=== PATIENT | female | born 1995 | race Caucasian/White ===

== ENCOUNTER → 2018-06-12 | Outpatient (CLI) | payer OTHER | LOC: M RAD 10:16 | DX: Z36.89 Encounter for other specified antenatal screening (principal); Z3A.18 18 weeks gestation of pregnancy | CPT/HCPCS: 76811 ==

== ENCOUNTER → 2018-07-30 | Outpatient (CLI) | payer OTHER ==
--- NOTE | 2018-07-30 12:59 | REP ---
Urinary tract sonogram: History: Flank pain, frequent UTIs. Approximate 25 weeks gestation. Comparison: No comparison study. Findings: Scanning at the level of the urinary bladder shows no abnormality. The patient voided just prior to the exam and the urinary bladder was empty. Renal cortical echogenicity pattern is normal bilaterally and contours are smooth. There is no evidence of hydronephrosis, cyst, mass, or calculus in either kidney. heart rate is recorded at 160 beats per minute. The right kidney measures 12.4 x 6.9 x 4.8 cm. Left renal dimensions are 12.9 x 5.9 x 5.4 cm. Impression: Normal urinary tract sonography. Electronically Signed by Charlie Anna MD 07/30/2018 12:51 P
== END ==
LOC: M RAD 12:17
PROVIDERS: ATTEND Obstetrics & Gynecology
DX: R10.9 Unspecified abdominal pain (principal)

== ENCOUNTER 2018-09-22 23:12 | Outpatient (CLI) | payer OTHER ==
[~2018-09-22] VITALS: Ht 182.9 cm; Wt 122.2 kg
[2018-09-22 23:26] VITALS: BP 130/73
[2018-09-22] MEDS ORDERED: PRENTAB9 PO (23:45)
[2018-09-22] MEDS ORDERED: FERR325T3 PO (23:45)
--- NOTE | 2018-09-23 00:17 | IPNPDOC ---
Text Note Date of Service The patient was seen on 09/23/18. NOTE 22 yo at 32+6 weeks presents to L&D for decreased movement after her dog jumped on her abdomen earlier this evening. She reports she was feeling a lot of movement tonight and then her large dog ran into her abdomen. After that she hasn't felt her baby move as much. She has mild pain where her dog hit her but nothing severe. She denies any vaginal bleeding or leakage of fluid. She also denies any contractions. Her is uncomplicated. Vitals - VSS, afebrile, normotensive, non tachycardic General - AAOX3, sitting up in bed, NAD Abdomen - Gravid uterus, no fundal tenderness Extremities - No edema Bedside TAUS - SIUP in cephalic presentation. +gross movement. ALMA 12.1cm. FHR tracing - Reactive NST. Moderate variability, +accels, no decels. No ctx on toco. Reassuring status on NST and bedside US. Patient felt significant movement while in triage and was reassured. Benign exam. Discharged home with return precautions. All patient questions answered. DO LORENZO Weinstein,Luly, I+O VS, Cheikhe, I+O Vital Signs Date Time Temp Pulse Resp B/P (MAP) Pulse Ox O2 Delivery O2 Flow Rate FiO2 09/22/18 23:26 98.6 84 18 130/73 (92) JULIA WEINSTEIN DO Sep 23, 2018 00:17
== END 2018-09-23 00:10 | disposition home or self-care (01) ==
LOC: M LDO 23:12
PROVIDERS: ATTEND Obstetrics & Gynecology
DX: O36.8130 Decreased fetal movements, third trimester, not applicable or unspecified (principal); W54.1XXA Struck by dog, initial encounter; Y92.89 Other specified places as the place of occurrence of the external cause; Y93.89 Activity, other specified; Y99.8 Other external cause status; Z3A.32 32 weeks gestation of pregnancy
CPT/HCPCS: 59025; 76815; G0378; G0463

== ENCOUNTER 2018-10-30 15:51 | Outpatient (CLI) | payer OTHER ==
[~2018-10-30] VITALS: Ht 182.9 cm; Wt 125.6 kg
[~2018-10-30 15:51] MED LIST: FERR325T3 PO; PRENTAB9 PO
[2018-10-30 16:36] VITALS: BP 107/54
[2018-10-31] MEDS ORDERED: BUSP10TA PO (10:27)
[2018-10-31] MEDS ORDERED: PROAAER10 INH (10:53)
== END 2018-10-30 17:57 | disposition home or self-care (01) ==
LOC: M LDO 15:51
PROVIDERS: ATTEND Obstetrics & Gynecology
DX: O36.8130 Decreased fetal movements, third trimester, not applicable or unspecified (principal); Z3A.38 38 weeks gestation of pregnancy
CPT/HCPCS: 59025; G0378; G0463

== ENCOUNTER 2018-10-31 10:03 | Inpatient (IN) | payer OTHER ==
[2018-10-31] VITALS (15 sets, daily range): BP systolic 117–150; BP diastolic 58–83
[~2018-10-31] VITALS: Ht 182.9 cm; Wt 126.3 kg
[2018-10-31] MEDS ORDERED: BUSP10TA PO (10:27)
[2018-10-31] MEDS ORDERED: PROAAER10 INH (10:53)
[2018-10-31] MEDS: LACTATED RINGER'S 1000 ML IV STA ×2 (10:55→11:47)
[2018-10-31] MEDS ORDERED: miSOPROStol 50 MCG 1/2 TAB (S0191) PO PRN (11:00)
--- NOTE | 2018-10-31 11:14 | HPEPDOC ---
Obstetrical History & Physical General Date of Admission October 31, 2018 at 10:54 History of Present Illness 22 y/o at 38+2 seen yesterday for decr FM and also found to have an ALMA 6 cm. Set up for NST/ALMA this coming MON, but today states that the FM has not improved, never got 4/hour at all overnight and only had 1 noted mvmt this AM. No LOF/VB/reg ctx's. 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 Past Medical History Medical History denies Surgical History: Other (left eye 2002) Family History Significant Family History: No pertinent family hx Social History Marital Status: Family situation: Spouse/partner home Psychosocial History: No pertinent psych hx * Smoker: non-smoker Alcohol: Denies Drugs: denies Abuse Violence Screening Have you been hit/kicked/slapp: No Have you been sexually assault: No Imunizations Tdap status: current Influenza Status: current Allergies Coded Allergies: Penicillins (Verified Allergy, Unknown, 10/31/18) HIVES Medications Scheduled Buspirone HCl (Buspirone HCl) 10 Mg Tablet, 1 TAB PO TID Ferrous Sulfate (Ferrous Sulfate) 325 Mg Tab, 325 MG PO BID No.137/Iron/Folic Acd ( Vitamin Tablet) 1 Tab Tab, 1 TAB PO DAILY Scheduled PRN Albuterol Sulfate (Proair Hfa) 8.5 Gm Hfa.aer.ad, 3 PUFF INH Q6H PRN for SHORTNESS OF BREATH Physical Examination Physical Examination GENERAL: Alert and oriented times three. ABDOMEN: Gravid and non-tender to touch. FETUS: Is vertex (VTX) by sterile vaginal examination (SVE), 1 cm dilated yesterday EXTREMITIES: No edema. Vital Signs/I&O Vital Signs Date Time Temp Pulse Resp B/P (MAP) Pulse Ox O2 Delivery O2 Flow Rate FiO2 10/31/18 10:41 98.2 84 20 144/83 (103) 96 Room Air Laboratory Data Urine Culture: Urinary Tract Infection (GBS pos) Pertinent Laboratoy Data Blood Type: O+ RBC Antibody Screen: Negative HIV: Negative Hepatitis B: Negative Hepatitis C: Unknown Rapid Plasma Reagin: Nonreactive Rubella: Immune Varicella: Nonreactive (non-immune) Chlamydia/Gonorrhea: Negative Group B Streptococcus: Positive Quad Screen Test: Unknown Cystic Fibrosis: Negative Glucose Tolerance Test: 109 Anatomy Ultrasound Placenta Location: Anterior Normal Anatomy: Yes Placenta Previa: No Vaginal Examination Dilation: 1cm Presentation: Cephalic presentation Assessment Heart Rate (FHR): 160 Variability: Moderate Accelerations: Positive Decelerations: None Heart Patterns: Tachycardia Tocometer Contractions: No Assessment/Plan Assessment Decr FM 2 days in a row with scan 6 cm ALMA yesterday, very close to oligohydramnios. Today has tachycardia as well. Will induce due to these 3 factors which indicate intervention. Plan Admit and orient. Co Founder And Ceo and consent. Diet: clears Group B Streptococcus (GBS) neg Labs and intravenous (IV) per unit protocol. Counseled on Pitocin and induction of labor (IOL), will start with 1 or 2 doses of miso orally, then likely a cook balloon. Lactated Ringers (LR): Bolus 1000 mL if elects for eventual epidural, then at 125 mL/hr. Anticipate normal spontaneous delivery () C-S as appropriate. Sessions SESSIONS,GALA Moreno MD October 31, 2018 11:14
[2018-10-31] MEDS: LR 1,000 ML IV SCH (11:47)
[2018-10-31 11:54] LABS: HEMOGLOBIN 12.2 g/dl (12.0-15.5); MEAN CORPUSCULAR HEMOGLOBIN 29.3 pg (27.0-33.0); MEAN CORPUSCULAR HGB CONC 33.9 g/dl (32.0-36.5); MEAN CORPUSCULAR VOLUME 86.3 fl (80.0-96.0); PLATELET COUNT, AUTOMATED 248 10^3/uL (150-450); RED BLOOD COUNT 4.17 10^6/uL (4.00-5.40)
[2018-10-31] MEDS ORDERED: NALBUPHINE HCL 10 MG/ML AMP (J2300) IM ONE (19:45)
[2018-10-31] MEDS ORDERED: NALBUPHINE HCL 10 MG/ML AMP (J2300) IV ONE (19:45)
[2018-10-31] MEDS ORDERED: PROMETHAZINE INJ 25 MG/ML VIAL (J2550) IV ONE (19:45)
[2018-10-31] MEDS: ceFAZolin SOD 1 GM in D5W MINI-BAG PLUS 50 ML IV SCH (20:04)
--- NOTE | 2018-10-31 20:48 | IPNPDOC ---
Text Note Date of Service The patient was seen on 10/31/18. NOTE Late note about an hour ago. S/P 1 dose miso at ~1300. FHT Cat 1, reg ctx's, has a lot of pain in the bed, feels better on the ball/standing Cx unchnged/slightly softer. Cook balloon placed 80 U/20 V. Will start pitocin, orders placed. Nubain/Phenergan OK if needs them. Sessions A-FIB/JOSÉ MIGUEL A-FIB History Current/History of A-Fib/PAF?: No VS,Fishbone, I+O VS, Fishbone, I+O Laboratory Tests 10/31/18 11:40 Red Blood Count 4.17, Mean Corpuscular Volume 86.3, Mean Corpuscular Hemoglobin 29.3, Mean Corpuscular Hemoglobin Concent 33.9, Red Cell Distribution Width 12.8 Vital Signs Date Time Temp Pulse Resp B/P (MAP) Pulse Ox O2 Delivery O2 Flow Rate FiO2 10/31/18 19:04 97.9 78 20 122/72 (89) 98 10/31/18 10:41 Room Air SESSIONS,GALA Moreno MD October 31, 2018 20:48
[2018-10-31] MEDS ORDERED: OXYTOCIN 30 UNITS IN 0.9% NaCl 500ML IV BAG (J2590) As Ordered ONE (20:55)
[2018-10-31] MEDS ORDERED: OXYTOCIN DRIP 30 UNITS in APPROPRIATE DILUENT 1 EA IV SCH (21:15)
[2018-11-01] VITALS (41 sets, daily range): BP systolic 106–202; BP diastolic 56–138
[2018-11-01] MEDS ORDERED: PROMETHAZINE INJ 25 MG/ML VIAL (J2550) IV ONE (02:30)
[2018-11-01] MEDS ORDERED: NALBUPHINE HCL 10 MG/ML AMP (J2300) IV ONE (02:30)
[2018-11-01] MEDS ORDERED: NALBUPHINE HCL 10 MG/ML AMP (J2300) IM ONE (02:30)
[2018-11-01] MEDS: ceFAZolin SOD 1 GM in D5W MINI-BAG PLUS 50 ML IV SCH ×2 (03:57→11:50)
[2018-11-01] MEDS: LR 1,000 ML IV SCH ×2 (07:41→09:02)
[2018-11-01] MEDS ORDERED: FENTANYL 2MCG/ML ROPIVACAINE 0.2% IN 0.9% NACL 100ML IVBAG As Ordered ONE (07:51)
[2018-11-01] MEDS ORDERED: EPIDURAL COMMENT XX SCH (08:45)
[2018-11-01] MEDS ORDERED: ePHEDrine SULFATE 25 MG/5 ML(5MG/ML) SYRINGE IV PRN (08:45)
[2018-11-01] MEDS ORDERED: ONDANSETRON 4MG/2ML VIAL (J2405) IV PRN ×2 (08:45→13:30)
[2018-11-01] MEDS ORDERED: diphenhydrAMINE INJ 50MG/ML VIAL (J1200) IV PRN (08:45)
[2018-11-01] MEDS ORDERED: EPIDURAL/PCA KEYS XX PRN (08:45)
[2018-11-01] MEDS ORDERED: REFRIGERATOR IV KEYS XX PRN (08:45)
[2018-11-01] MEDS ORDERED: LACTATED RINGER'S 1000 ML IV PRN (08:45)
[2018-11-01] MEDS ORDERED: FENTANYL/ROPIVACAINE/NACL BAG 100 ML EPIDURAL SCH (08:45)
[2018-11-01] MEDS ORDERED: NALOXONE INJ 0.4 MG/1 ML VIAL (J2310) IV PRN (08:45)
--- NOTE | 2018-11-01 08:48 | IPNPDOC ---
Text Note Date of Service The patient was seen on 11/01/18. NOTE Now s/p munguia bulb out several hours ago. Wanted a second dose of Nubain/Phen ergan at 0300, declined an epidural. Pitocin decreased slowly throughout the night due to ctx freq. FHT has been reassuring Cat 1 throughout. Now wants an epidural. SBAR to Dr Weinstein now. Sessions A-FIB/JOSÉ MIGUEL A-FIB History Current/History of A-Fib/PAF?: No VS,Fishbone, I+O VS, Fishbone, I+O Laboratory Tests 10/31/18 11:40 Red Blood Count 4.17, Mean Corpuscular Volume 86.3, Mean Corpuscular Hemoglobin 29.3, Mean Corpuscular Hemoglobin Concent 33.9, Red Cell Distribution Width 12.8 Vital Signs Date Time Temp Pulse Resp B/P (MAP) Pulse Ox O2 Delivery O2 Flow Rate FiO2 11/01/18 08:36 99.0 108 18 132/75 (94) 10/31/18 19:04 98 10/31/18 10:41 Room Air I&O- Last 24 Hours up to 6 AM 11/01/18 06:00 Intake Total 3230 ml Output Total 905 ml Balance 2325 ml GALA CINTRON MD November 01, 2018 08:48
--- NOTE | 2018-11-01 11:20 | IPNPDOC ---
Text Note Date of Service The patient was seen on 11/01/18. NOTE Accepting care of Ms. Lancaster. She's a 22 yo at 38+3 weeks gestation who was admitted yesterday for an IOL for persistent decreased movement in the setting of borderline oligohydramnios. Her IOL was started with cytotec and she had a cook balloon thereafter which expelled spontaneously at ~0300. She has then been on pitocin. She received an epidural this morning and is comfortable. Cervix: C/C/+2. FHR: Cat II with intermittent variable decels, but moderate variability and overall reassuring. Ms. Lancaster has progressed well. Will begin pushing shortly. DO Js A-FIB/CHADSVASC A-FIB History Current/History of A-Fib/PAF?: No VS,Fishbone, I+O VS, Fishbone, I+O Laboratory Tests 10/31/18 11:40 Red Blood Count 4.17, Mean Corpuscular Volume 86.3, Mean Corpuscular Hemoglobin 29.3, Mean Corpuscular Hemoglobin Concent 33.9, Red Cell Distribution Width 12.8 Vital Signs Date Time Temp Pulse Resp B/P (MAP) Pulse Ox O2 Delivery O2 Flow Rate FiO2 11/01/18 10:42 90 18 124/75 (91) 11/01/18 08:36 99.0 10/31/18 19:04 98 10/31/18 10:41 Room Air I&O- Last 24 Hours up to 6 AM 11/01/18 06:00 Intake Total 3230 ml Output Total 905 ml Balance 2325 ml JULIA CH DO November 01, 2018 11:20
[2018-11-01] MEDS ORDERED: OXYTOCIN DRIP 30 UNITS in APPROPRIATE DILUENT 1 EA IV SCH (13:26)
[2018-11-01] MEDS ORDERED: RHOGAM 300 MCG (1500 IU) INJ (J2790) IM SCH (13:30)
[2018-11-01] MEDS ORDERED: DIBUCAINE 1% OINTMENT 30GM TOP PRN (13:30)
[2018-11-01] MEDS ORDERED: MEASLES,MUMPS,RUBELLA VACCINE INJ (MMR-II) (90707) SC SCH (13:30)
[2018-11-01] MEDS ORDERED: ACETAMINOPHEN 500 MG TAB PO PRN (13:30)
[2018-11-01] MEDS ORDERED: DOCUSATE SODIUM 100 MG CAP PO PRN (13:30)
[2018-11-01] MEDS ORDERED: IBUPROFEN 800 MG TAB PO PRN (13:30)
[2018-11-01] MEDS ORDERED: IBUPROFEN 600 MG TAB PO PRN (13:30)
[2018-11-01] MEDS ORDERED: ACETAMINOPHEN TAB 650MG DOSE (2X325MG) PO PRN (13:30)
--- NOTE | 2018-11-01 13:44 | DNPDOC ---
[facility] Delivery Note Delivery Note DATE OF DELIVERY: 01Nov2018 at ~1310 PREDELIVERY DIAGNOSIS: 38+3 weeks gestation and labor POST DELIVERY DIAGNOSIS: Delivered. PROCEDURE: Spontaneous vaginal delivery MATERIAL DISPOSITION INSPECTOR: Dr. Weinstein ANESTHESIA: Epidural ESTIMATED BLOOD LOSS: 200 mL. FINDINGS: Viable female infant, Apgars 7/8 DELIVERY SUMMARY: Presented to room as patient was pushing well to +3 station. The bed was broken down and she was prepped for delivery. There was a tight band of perineal tissue and a small, midline episiotomy was made. After this her infant delivered. Presentation was JAMAL with restitution to [facility]. There was a tight nuchal cord that was delivered through and reduced manually. The right anterior shoulder delivered with gentle traction followed easily by the remainder of the body. The infant was dried and stimulated on the field and a bulb suction was used. The infant was placed on the maternal abdomen. The baby did not cry vigorously initially. The three vessel cord was then clamped and cut by the FOB and the infant was taken over to the warmer under the care of the awaiting baby nurse team. Umbilical cord blood gases were then obtained. Third stage was then completed with gentle traction on the cord and it was productive of an intact placenta. The uterine fundus was firmed with massage and pitocin was administered IV bolus. A midline 2nd degree perineal laceration along with the midline episiotomy was identified. The episiotomy and laceration were then repaired with 3-0 vicryl suture in the usual fashion. There was excellent cosmesis and hemostasis. The fundus was palpated again and was firm. Rectal exam confirmed intact sphincter muscles and rectal mucosa with no communication with the vagina. Sponge, instrument, and needle counts correct X2. Mother stable when I left the room. DO DIMA Farias CHRISTOPHER J. DO November 01, 2018 13:44
[2018-11-01 14:04] LABS: CORD GAS ABE A -4.4; CORD GAS O2 SAT A 44.3 %; CORD GAS PCO2 A 57.8 mmHg; CORD GAS PH A 7.237 UNITS; CORD GAS PO2 A 22.2 mmHg; CORD GAS SBC A 19.6 MEQ/L; CORD GAS TCO2 A 25.8 MEQ/L
[2018-11-01 14:06] LABS: CORD GAS ABE V -4.9; CORD GAS HCO3 V 20.8 MEQ/L; CORD GAS O2 SAT V 56.6 %; CORD GAS PH V 7.323 UNITS; CORD GAS PO2 V 23.6 mmHg; CORD GAS SBC V 19.5 MEQ/L; CORD GAS TCO2 V 22.1 MEQ/L
[2018-11-01] MEDS: PRENATAL VITAMINS CHEWABLE TABLET PO SCH (16:49)
[2018-11-02 06:00] VITALS: BP 118/56
--- NOTE | 2018-11-02 07:17 | IPNPDOC ---
Progress Note Date of Service: November 02, 2018 Progress Note Ms. Lancaster is a 22 yo G1 now P1 who underwent an uncomplicated yesterday ([id number]) at ~1300 after being admitted for an IOL for persistent DFM in the setting of borderline oligohydramnios. She is currently recovering on the sepulveda. Ms. Lancaster reports feeling well this AM. She was able to get some rest last night. She has ambulated to the restroom and voided without issues. She is tolerating a regular diet and has minimal lochia. She endorses some cramping but it is not too bad. Vitals - VSS, normotensive, afebrile, non tachycardic General - AAOX3, sitting up in bed, NAD Abdomen - Fundus firm at U-2. No fundal tenderness Extremities - No edema Ms. Lancaster is doing well and is making an appropriate recovery. Continue to encourage ambulation and today. Continue routine care. Anticipate discharge home tomorrow. Julia Weinstein DO VS, I&O, 24H, Fishbone Vital Signs/I&O Vital Signs Date Time Temp Pulse Resp B/P (MAP) Pulse Ox O2 Delivery O2 Flow Rate FiO2 11/02/18 06:00 97.4 77 18 118/56 (76) 10/31/18 19:04 98 10/31/18 10:41 Room Air I&O- Last 24 Hours up to 6 AM 11/02/18 05:59 Intake Total 1500 ml Output Total 1200 ml Balance 300 ml Laboratory Data 24H LABS Laboratory Tests 2 11/01/18 13:28: Cord Arterial Blood pH 7.237, Cord Arterial Blood PCO2 57.8, Cord Arterial Blood PO2 22.2, Cord Arterial Blood HCO3 24.0, Cord Arterial Blood Total CO2 25.8, Cord Arterial Blood Base Excess -4.4, Cord Arterial Base Excess (Standard 19.6, Cord Arterial Bld Oxygen Saturation 44.3 11/01/18 13:29: Cord Venous Blood pH 7.323, Cord Venous Blood PCO2 41.0, Cord Venous Blood PO2 23.6, Cord Venous Blood HCO3 20.8, Cord Venous Blood Total CO2 22.1, Cord Venous Base Excess (Actual) -4.9, Cord Venous Base Excess (Standard) 19.5, Cord Venous Blood Oxygen Saturation 56.6 JULIA WEINSTEIN DO November 02, 2018 07:17
[2018-11-02] MEDS: PRENATAL VITAMINS CHEWABLE TABLET PO SCH (08:28)
[2018-11-02 18:36] VITALS: BP 125/69
[2018-11-03 06:00] VITALS: BP 136/85
--- NOTE | 2018-11-03 07:17 | DS.PDOC ---
Discharge Summary General Date of Admission October 31, 2018 at 10:54 Date of Discharge November 03, 2018 Discharge Summary HOSPITAL COURSE: Ms. Lancaster is a 22 yo G1 now P1 who underwent an uncomplicated precipitous on 01Nov2018 after being admitted for an IOL the day previously for persistent DFM in the setting of borderline oligohydramnios. Her course has been unremarkable. On her day of discharge she met all appropriate discharge criteria. She was ambulating, voiding, tolerating a regular diet, had no pain, and had minimal lochia. DISCHARGE MEDICATIONS: Please see below. ALLERGIES: Please see below. PHYSICAL EXAMINATION ON DISCHARGE: VITAL SIGNS: Please see below. GENERAL: AAOX3, sitting up in bed, NAD ABDOMINAL EXAMINATION: Fundus firm at U-2. No fundal tenderness. EXTREMITIES: No edema PSYCHIATRIC EXAMINATION: Affect appropriate LABORATORY DATA: Please see below. ACTIVITY: Pelvic rest for 6 weeks DIET: Regular DISCHARGE PLAN: Discharge to home or boarder DISPOSITION: Discharge to home or to boarder on 03Nov2018. DISCHARGE INSTRUCTIONS: 1. Pelvic rest for 6 weeks. ITEMS TO FOLLOWUP ON ON OUTPATIENT: 1. appointment in 6 weeks. DISCHARGE CONDITION: Stable. TIME SPENT ON DISCHARGE: Greater than 20 minutes. Julia Weinstein DO Vital Signs/I&Os Vital Signs Date Time Temp Pulse Resp B/P (MAP) Pulse Ox O2 Delivery O2 Flow Rate FiO2 11/03/18 06:00 98.0 79 18 136/85 (102) 10/31/18 19:04 98 10/31/18 10:41 Room Air Discharge Medications Scheduled Buspirone HCl (Buspirone HCl) 10 Mg Tablet, 1 TAB PO TID, (Reported) Ferrous Sulfate (Ferrous Sulfate) 325 Mg Tab, 325 MG PO BID, (Reported) No.137/Iron/Folic Acd ( Vitamin Tablet) 1 Tab Tab, 1 TAB PO DAILY, (Reported) Scheduled PRN Albuterol Sulfate (Proair Hfa) 8.5 Gm Hfa.aer.ad, 3 PUFF INH Q6H PRN for SHORTNESS OF BREATH, (Reported) Allergies Coded Allergies: Penicillins (Verified Allergy, Unknown, 10/31/18) JULIA GARVIN DO November 03, 2018 07:17
[2018-11-03] MEDS: PRENATAL VITAMINS CHEWABLE TABLET PO SCH (07:48)
[2018-11-03] MEDS ORDERED: COLA100C5 PO (11:55)
[2018-11-03] MEDS ORDERED: NUPE10OI TOP (11:55)
[2018-11-03] MEDS ORDERED: IBUP200C33 PO (11:55)
[2018-11-03] MEDS ORDERED: MAPA500T2 PO ×2 (11:55)
[2018-11-03] MEDS ORDERED: MOTR200T44 PO (11:55)
== END 2018-11-03 12:50 | disposition home or self-care (01) | DRG 806 ==
LOC: M LDO 10:03 → M LDI 10:54 → M OBS 11-01 15:21
PROVIDERS: ADMIT Obstetrics & Gynecology; ATTEND Obstetrics & Gynecology
PROC: 3E033VJ Introduction of Other Hormone into Peripheral Vein, Percutaneous Approach (ICD-10-PCS; 2018-10-31)
PROC: 10E0XZZ Delivery of Products of Conception, External Approach (ICD-10-PCS; principal; 2018-11-01)
PROC: 0W8NXZZ Division of Female Perineum, External Approach (ICD-10-PCS; 2018-11-01)
PROC: 0KQM0ZZ Repair Perineum Muscle, Open Approach (ICD-10-PCS; 2018-11-01)
DX: O36.8130 Decreased fetal movements, third trimester, not applicable or unspecified (principal); Z37.0 Single live birth; O41.03X0 Oligohydramnios, third trimester, not applicable or unspecified; Z3A.38 38 weeks gestation of pregnancy; O99.824 Streptococcus B carrier state complicating childbirth; O76 Abnormality in fetal heart rate and rhythm complicating labor and delivery; O69.81X0 Labor and delivery complicated by cord around neck, without compression, not applicable or unspecified; O70.1 Second degree perineal laceration during delivery; O99.52 Diseases of the respiratory system complicating childbirth; J45.20 Mild intermittent asthma, uncomplicated

== ENCOUNTER 2020-01-18 11:56 | Outpatient (CLI) | payer OTHER ==
[~2020-01-18] VITALS: Ht 182.9 cm; Wt 133.0 kg
[~2020-01-18 11:56] MED LIST changes: +BUSP10TA PO; +COLA100C5 PO; +IBUP200C33 PO; +MAPA500T2 PO; +MOTR200T44 PO; +NUPE10OI TOP; +PROAAER10 INH
[2020-01-18 12:16] VITALS: BP 132/60
[2020-01-18 13:31] LABS: HEMATOCRIT 34.5 % (36.0-47.0); HEMOGLOBIN 11.6 g/dl (12.0-15.5); MEAN CORPUSCULAR HEMOGLOBIN 28.9 pg (27.0-33.0); MEAN CORPUSCULAR HGB CONC 33.6 g/dl (32.0-36.5); PLATELET COUNT, AUTOMATED 255 10^3/uL (150-450); RED BLOOD COUNT 4.01 10^6/uL (4.00-5.40); WHITE BLOOD COUNT 9.8 10^3/uL (4.0-10.0)
[2020-01-18 13:45] LABS: APPEARANCE, URINE CLEAR (CLEAR); BACTERIA, URINE AUTO 1+ (NEGATIVE); BILIRUBIN, URINE AUTO NEGATIVE (NEGATIVE); BLOOD, URINE BLOOD 1+ (NEGATIVE); COLOR, URINE STRAW (YELLOW); GLUCOSE, URINE (UA) AUTO NEGATIVE (NEGATIVE); KETONE, URINE AUTO NEGATIVE (NEGATIVE); LEUKOCYTE ESTERASE, URINE AUTO 3+ (NEGATIVE); MUCUS, URINE SMALL (NEGATIVE); NITRITE, URINE AUTO NEGATIVE (NEGATIVE); PROTEIN, URINE AUTO NEGATIVE (NEGATIVE); RBC, URINE AUTO 2 /HPF (0-3); SPECIFIC GRAVITY URINE AUTO 1.003 (1.002-1.035); SQUAMOUS EPITHELIAL CELL UR AU 0 /HPF (0-6); UROBILINOGEN, URINE AUTO 0.2 mg/dL (0.0-2.0); WBC, URINE AUTO 51 /HPF (0-3)
--- NOTE | 2020-01-18 14:15 | IPNPDOC ---
Text Note Date of Service The patient was seen on 01/18/20. NOTE [facility] LND Triage S: Loulou is a 24yo at 27+3wks gestation, EDC of [id number], presents to LND triage for c/o pain since 0300 this morning. She reports waking up at 0300 with cramping pain that 'felt like contractions'. She took tums, which did not help and pain then became constant in her lower abdomen that radiates to her back. She had a normal bowel movement at 0500; then she took 1g tylenol and drank 3x 22oz bottles of water. She reports her pain of 8/10 and states nothing helps. She denies s/sx of UTI or abnormal vaginal discharge. She reports +FM, denies LOF/VB/. complicated by Obesity (BMI 38.2) and close spaced pregnancies. O: VSS, afebrile, normotensive FHR 140s, moderate variability; appropriate for gestational age CBC WNL UA: +leuks and WBCs, possible UTI SSE: normal exam; GC and WP collected and sent to lab No CVA tenderness palpated Abdomen: generalized pain with palpation, non specific; no s/sx of appendicitis A/P: 24yo at 27+3wks, possible UTI, but will wait to treat based on results of urine culture. Will write for pyridium and flexeril for pain. If UC/GC or WP positive, will notify and treat. status reassuring Discharged home with precautions f/u next week in clinic for PHILL VS,Cheikhe, I+O VS, Fishbone, I+O Vital Signs Date Time Temp Pulse Resp B/P (MAP) Pulse Ox O2 Delivery O2 Flow Rate FiO2 01/18/20 12:16 97.8 76 18 132/60 (84) Laboratory Tests 01/18/20 13:20: White Blood Count 9.8, Red Blood Count 4.01, Hemoglobin 11.6L, Hematocrit 34.5L, Mean Corpuscular Volume 86.0, Mean Corpuscular Hemoglobin 28.9, Mean Corpuscular Hemoglobin Concent 33.6, Red Cell Distribution Width 12.2, Platelet Count 255, Nucleated Red Blood Cells % (auto) 0.0 01/18/20 13:29: Urine Color STRAW, Urine Appearance CLEAR, Urine pH 8.0, Urine Specific [place] 1.003, Urine Protein NEGATIVE, Urine Glucose (Auto)(UA) NEGATIVE, Urine Ketones (Auto) NEGATIVE, Urine Blood 1+H, Urine Nitrite NEGATIVE, Urine Bilirubin NEGATIVE, Urine Urobilinogen 0.2, Urine Leukocyte Esterase (Auto) 3+H, Urine WBC (Auto) 51H, Urine RBC (Auto) 2, Urine Hyaline Casts (Auto) 0, Urine Bacteria (Auto) 1+H, Urine Squamous Epithelial Cells 0, Urine Mucus (Auto) SMALL, Urine Sperm (Auto) Laboratory Tests 01/18/20 13:20 SANDOVAL YO Jan 18, 2020 14:12
== END 2020-01-18 14:18 | disposition home or self-care (01) ==
LOC: M LDO 11:56 → EEVIPCON 11:56 → M LDO 14:18
PROVIDERS: ATTEND Registered Nurse Maternal Newborn
DX: O26.892 Other specified pregnancy related conditions, second trimester (principal); Z3A.27 27 weeks gestation of pregnancy
CPT/HCPCS: 36415; 59025; 81001; 85027; 87088; 87186; 87210; G0378; G0463

== ENCOUNTER → 2020-02-10 | Outpatient (CLI) | payer OTHER ==
[~2020-02-10] MED LIST changes: +CYCL5TAB PO; +DIBU10OI TOP; +DOCU100C16 PO; +IBUP80TA PO; +TUMS500C PO
[2020-04-03 02:32] LABS: APPEARANCE, URINE CLOUDY (CLEAR); BACTERIA, URINE AUTO 1+ (NEGATIVE); BILIRUBIN, URINE AUTO NEGATIVE (NEGATIVE); BLOOD, URINE BLOOD NEGATIVE (NEGATIVE); COLOR, URINE YELLOW (YELLOW); GLUCOSE, URINE (UA) AUTO NEGATIVE (NEGATIVE); KETONE, URINE AUTO NEGATIVE (NEGATIVE); LEUKOCYTE ESTERASE, URINE AUTO 3+ (NEGATIVE); NITRITE, URINE AUTO NEGATIVE (NEGATIVE); PROTEIN, URINE AUTO NEGATIVE (NEGATIVE); RBC, URINE AUTO 4 /HPF (0-3); SPECIFIC GRAVITY URINE AUTO 1.012 (1.002-1.035); SQUAMOUS EPITHELIAL CELL UR AU 0 /HPF (0-6); UROBILINOGEN, URINE AUTO 0.2 mg/dL (0.0-2.0); WBC, URINE AUTO TNTC /HPF (0-3)
== END ==
LOC: M LDO 12:30
PROVIDERS: ATTEND Obstetrics & Gynecology
DX: O23.43 Unspecified infection of urinary tract in pregnancy, third trimester (principal); Z3A.30 30 weeks gestation of pregnancy
CPT/HCPCS: 59025; 81001; 87088; 87186; 96374; 96375; G0378; G0463

== ENCOUNTER 2020-02-11 21:55 | Outpatient (CLI) | payer OTHER ==
[~2020-02-11 21:55] MED LIST changes: -CYCL5TAB PO; -DIBU10OI TOP; -DOCU100C16 PO; -IBUP80TA PO; -TUMS500C PO
[2020-04-03 16:43] LABS: BASO % 0.1 % (0.0-1.0); EOS % 0.1 % (0.0-3.0); HEMATOCRIT 32.7 % (36.0-47.0); LYMPH # 1.6 10^3/uL (1.5-5.0); LYMPH % 16.3 % (24.0-44.0); MEAN CORPUSCULAR HEMOGLOBIN 28.9 pg (27.0-33.0); MEAN CORPUSCULAR HGB CONC 33.6 g/dl (32.0-36.5); MEAN CORPUSCULAR VOLUME 86.1 fl (80.0-96.0); MONO # 0.7 10^3/uL (0.0-0.8); MONO % 7.1 % (0.0-5.0); NEUTROPHILS # 7.3 10^3/uL (1.5-8.5); PLATELET COUNT, AUTOMATED 251 10^3/uL (150-450); WHITE BLOOD COUNT 9.7 10^3/uL (4.0-10.0)
[2020-04-03 18:02] LABS: APPEARANCE, URINE CLOUDY (CLEAR); BACTERIA, URINE AUTO 3+ (NEGATIVE); BILIRUBIN, URINE AUTO NEGATIVE (NEGATIVE); BLOOD, URINE BLOOD NEGATIVE (NEGATIVE); COLOR, URINE AMBER (YELLOW); GLUCOSE, URINE (UA) AUTO NEGATIVE (NEGATIVE); KETONE, URINE AUTO NEGATIVE (NEGATIVE); LEUKOCYTE ESTERASE, URINE AUTO 2+ (NEGATIVE); MUCUS, URINE SMALL (NEGATIVE); NITRITE, URINE AUTO NEGATIVE (NEGATIVE); PROTEIN, URINE AUTO 1+ mg/dL (NEGATIVE); RBC, URINE AUTO 16 /HPF (0-3); SPECIFIC GRAVITY URINE AUTO 1.024 (1.002-1.035); SQUAMOUS EPITHELIAL CELL UR AU 1 /HPF (0-6); WBC, URINE AUTO TNTC /HPF (0-3)
== END 2020-02-12 01:25 ==
LOC: M LDO 21:55
PROVIDERS: ATTEND Obstetrics & Gynecology
DX: O99.283 Endocrine, nutritional and metabolic diseases complicating pregnancy, third trimester (principal); Z3A.31 31 weeks gestation of pregnancy
CPT/HCPCS: 80048; 81001; 85025; 87088; 87186; 96360; G0378; G0463

== ENCOUNTER 2020-02-28 21:16 | Outpatient (CLI) | payer OTHER ==
[~2020-02-28] VITALS: Ht 182.9 cm; Wt 133.7 kg
[2020-02-28 21:27] VITALS: BP 114/64
[2020-02-28 21:33] VITALS: BP 104/56
[2020-02-28 22:17] LABS: APPEARANCE, URINE CLEAR (CLEAR); BACTERIA, URINE AUTO NEGATIVE (NEGATIVE); BILIRUBIN, URINE AUTO NEGATIVE (NEGATIVE); BLOOD, URINE BLOOD 1+ (NEGATIVE); COLOR, URINE COLORLESS (YELLOW); GLUCOSE, URINE (UA) AUTO NEGATIVE (NEGATIVE); KETONE, URINE AUTO NEGATIVE (NEGATIVE); LEUKOCYTE ESTERASE, URINE AUTO NEGATIVE (NEGATIVE); NITRITE, URINE AUTO NEGATIVE (NEGATIVE); PROTEIN, URINE AUTO NEGATIVE (NEGATIVE); RBC, URINE AUTO 0 /HPF (0-3); SQUAMOUS EPITHELIAL CELL UR AU 0 /HPF (0-6); UROBILINOGEN, URINE AUTO 0.2 mg/dL (0.0-2.0); WBC, URINE AUTO 0 /HPF (0-3)
[2020-02-28 23:11] VITALS: BP 104/57
[2020-02-28 23:39] LABS: CHLAMYDIA DNA AMPLIFICATION NEGATIVE (NEGATIVE); GC DNA AMPLIFICATION NEGATIVE (NEGATIVE)
[2020-02-28 23:54] VITALS: BP 118/61
--- NOTE | 2020-02-29 00:02 | IPNPDOC ---
Obstetrical Progress Note Date of Service Feb 28, 2020 Subjective 24yo at 33+2 presents for cramps and vaginal dischagre. She reports cramps that started this morning that are like a period and increased vaginal pressure that is constant. She also complains of 2d of clear vaginal discharge without odor. She denies vaginal burning or pruritis. She denied decreased FM or regular painful contractions. She denied n/v/d, cp, sob, shaikh, visual changes, f/c, vaginal bleeding, urinary sx. Objective Vital Signs Date Time Temp Pulse Resp B/P (MAP) Pulse Ox O2 Delivery O2 Flow Rate FiO2 02/28/20 21:33 97.3 133 18 104/56 (72) Assessment Heart Rate (FHR): 140 Variability: Moderate Accelerations: Positive Heart Rate Tracing: Category II Sterile Vaginal Examination Dilation: 1cm Station: -3 Cervical Consistency: Firm Cervical Position: Posterior Postion/Presentation: Cephalic presentation (by US) Assessment and Plan Status: Reassuring Additional Comments 24yo at 33+2 presents for concern for ROM and labor. VS normal. CAT II tracing for 1 deceleration, non-associated with a contraction, but overall reassuring tracing. AKASH/WP negative. UA contaminated, UCx pending. G/C negative. Ferning negative. SVE 1/T/H and unchanged on 2h repeat. Ceph by US, MVP 5.5cm. Labor and ROM are unlikley at this time. - follow up at next [facility] - routine OB return precautions given - strict PTL return precautions given NICOLLE RIVERO DO Feb 28, 2020 23:22
== END 2020-02-29 00:10 | disposition home or self-care (01) ==
LOC: M LDO 21:16
PROVIDERS: ATTEND Obstetrics & Gynecology
DX: O26.893 Other specified pregnancy related conditions, third trimester (principal); N88.9 Noninflammatory disorder of cervix uteri, unspecified; Z3A.33 33 weeks gestation of pregnancy
CPT/HCPCS: 59025; 76815; 81001; 87086; 87661; G0378; G0463

== ENCOUNTER → 2020-03-02 | Outpatient (CLI) | payer OTHER ==
[~2020-03-02] MED LIST changes: +CYCL5TAB PO; +DIBU10OI TOP; +DOCU100C16 PO; +IBUP80TA PO; +TUMS500C PO
--- NOTE | 2020-03-30 08:09 | REP ---
OBSTETRICAL ULTRASOUND CLINICAL: Growth evaluation. TECHNIQUE: Transabdominal obstetrical ultrasound with color Doppler evaluation. FINDINGS: Single live intrauterine in cephalic presentation. motion was identified by the technologist Placenta was noted posteriorly and grade 1 without evidence for placenta previa or abruption. Amniotic fluid volume is upper normal. ALMA equals 18.8 cm. Cervix measures 4.1 cm in length and appears closed. heart rate equals 152 beats per minute. MEASUREMENTS: BPD 93 mm 37 weeks 5 days HC 338 mm 38 weeks 6 days AC 338 mm 36 weeks 2 days FL 71 mm 36 weeks 2 days HL 66 mm 38 weeks 4 days Estimated age by current measurements 37 weeks 2 days with estimated date of delivery 03/21/2020. Estimated weight 2996 grams. Umbilical artery S/D ratio 2.5. Anatomical assessment is grossly unremarkable and demonstrates normal cisterna magna, cavum, thalamus, kidneys/bladder, stomach, and spine. IMPRESSION: Single live advanced gestation in cephalic presentation. [facility]
== END ==
LOC: M RAD 14:48
PROVIDERS: ATTEND Nurse Practitioner Women's Health
DX: Z36.4 Encounter for antenatal screening for fetal growth retardation (principal); Z3A.38 38 weeks gestation of pregnancy

== ENCOUNTER 2020-03-05 23:23 | Outpatient (CLI) | payer OTHER ==
[~2020-03-05] VITALS: Ht 182.9 cm; Wt 134.6 kg
[~2020-03-05 23:23] MED LIST changes: -CYCL5TAB PO; -DIBU10OI TOP; -DOCU100C16 PO; -IBUP80TA PO; -TUMS500C PO
[2020-03-05 23:43] VITALS: BP 104/68
[2020-03-06 00:13] VITALS: BP 116/65
[2020-03-06] MEDS ORDERED: MAPA500T2 PO (00:32)
[2020-03-06] MEDS ORDERED: TUMS500C PO (00:32)
[2020-03-06 02:38] LABS: CHLAMYDIA DNA AMPLIFICATION NEGATIVE (NEGATIVE); GC DNA AMPLIFICATION NEGATIVE (NEGATIVE)
== END 2020-03-06 00:47 | disposition home or self-care (01) ==
LOC: M LDO 23:23
PROVIDERS: ATTEND Registered Nurse
DX: O26.893 Other specified pregnancy related conditions, third trimester (principal); Z3A.34 34 weeks gestation of pregnancy
CPT/HCPCS: 59025; 87081; 87086; 87491; 87591; G0378; G0463

== ENCOUNTER 2020-03-22 16:55 | Outpatient (CLI) | payer OTHER ==
[~2020-03-22] VITALS: Ht 182.9 cm; Wt 135.0 kg
[~2020-03-22 16:55] MED LIST changes: +TUMS500C PO
[2020-03-22 17:11] VITALS: BP 118/66
[2020-03-22 19:06] VITALS: BP 101/59
[2020-03-22 19:14] LABS: APPEARANCE, URINE CLEAR (CLEAR); BACTERIA, URINE AUTO NEGATIVE (NEGATIVE); BILIRUBIN, URINE AUTO NEGATIVE (NEGATIVE); BLOOD, URINE BLOOD NEGATIVE (NEGATIVE); COLOR, URINE STRAW (YELLOW); GLUCOSE, URINE (UA) AUTO NEGATIVE (NEGATIVE); KETONE, URINE AUTO NEGATIVE (NEGATIVE); LEUKOCYTE ESTERASE, URINE AUTO NEGATIVE (NEGATIVE); NITRITE, URINE AUTO NEGATIVE (NEGATIVE); PROTEIN, URINE AUTO NEGATIVE (NEGATIVE); RBC, URINE AUTO 0 /HPF (0-3); SPECIFIC GRAVITY URINE AUTO 1.001 (1.002-1.035); SQUAMOUS EPITHELIAL CELL UR AU 0 /HPF (0-6); UROBILINOGEN, URINE AUTO 0.2 mg/dL (0.0-2.0); WBC, URINE AUTO 0 /HPF (0-3)
--- NOTE | 2020-03-22 19:20 | IPNPDOC ---
Obstetrical Progress Note Date of Service Mar 22, 2020 Subjective 24yo at 36+4 presents for SROM check and decreased FM. She reports she did not feel well this morning and threw up and clear fluid came out that had no odor. She has not had leaking since. She also endorsed decreased FM reporting continued movement but subjective decrease over the past 2 days. She otherwise denied nausea, diarrhea, cp, sob, shaikh, visual changes, abd pain, f/c, vaginal bleeding, dc, urinary sx. Objective Vital Signs Date Time Temp Pulse Resp B/P (MAP) Pulse Ox O2 Delivery O2 Flow Rate FiO2 03/22/20 17:11 96.1 142 16 118/66 (83) Assessment Heart Rate (FHR): 140 Variability: Moderate Accelerations: Positive Decelerations: None Heart Rate Tracing: Category I Tocometer Contractions: Yes Frequency: irregular Sterile Vaginal Examination Dilation: 1cm Station: -3 Cervical Consistency: Firm Cervical Position: Posterior Postion/Presentation: Cephalic presentation (by US) Assessment and Plan Status: Reassuring Additional Comments 24yo at 36+4 presents for SROM check and decreased FM. VS normal. CAT I tracing reactive. Intermittent contractions on toco. SVE 1/T/H which is unchanged from her exam at 33wk. No pooling. No ferning. AKASH/WP negative. UA pending. MVP 4.6cm. +FM on TAUS. Ceph by US. Reported the vomiting this morning was likey due to gerd and she feels fine now. Declined STI testing. PTL is unlikley at this time. - routine OB return precautions - PTL return precautions - otherwise to follow up at next PHILL Physical Examination General Exam: Positive: Alert Eye Exam: Positive: Conjunctiva & lids normal ENT EXAM: Positive: Atraumatic Neck Exam: Positive: Supple Chest Exam: Positive: Normal air movement Heart Exam: Positive: Rate Normal Abdomen Exam: Positive: Soft Female Exam: Positive: Normal Cervical Exam Skin Exam: Positive: Nl turgor and temperature Neuro Exam: Positive: Normal Gait Psych Exam: Positive: Mental status NL NICOLLE RIVERO DO Mar 22, 2020 19:20
[2020-03-23] MEDS ORDERED: CYCL5TAB PO (00:50)
== END 2020-03-22 19:07 | disposition home or self-care (01) ==
LOC: M LDO 16:55
PROVIDERS: ATTEND Registered Nurse Maternal Newborn
DX: O36.8131 Decreased fetal movements, third trimester, fetus 1 (principal); Z3A.36 36 weeks gestation of pregnancy

== ENCOUNTER 2020-03-22 22:29 | Emergency (ER) | payer OTHER ==
[~2020-03-22] VITALS: Ht 182.9 cm; Wt 134.4 kg
[2020-03-23 00:45] VITALS: BP 143/67
[2020-03-23] MEDS ORDERED: CYCLOBENZAPRINE 5MG TABLET PO ONE (00:45)
[2020-03-23] MEDS ORDERED: NORCO, ANEXSIA 5/325MG TABLET (HYDROcodone/ACETAMINOPHEN) PO ONE (00:45)
[2020-03-23] MEDS ORDERED: CYCL5TAB PO (00:50)
== END 2020-03-23 01:03 | disposition home or self-care (01) ==
LOC: M ED 22:29
DX: O26.893 Other specified pregnancy related conditions, third trimester (principal); M54.5 Low back pain; O36.8131 Decreased fetal movements, third trimester, fetus 1; Z3A.36 36 weeks gestation of pregnancy; Z88.0 Allergy status to penicillin; Z79.899 Other long term (current) drug therapy

== ENCOUNTER 2020-03-26 20:50 | Outpatient (CLI) | payer OTHER ==
[~2020-03-26] VITALS: Ht 182.9 cm; Wt 133.6 kg
[~2020-03-26 20:50] MED LIST changes: +CYCL5TAB PO
[2020-03-26 22:00] VITALS: BP 110/71
--- NOTE | 2020-03-26 22:08 | IPNPDOC ---
Text Note Date of Service The patient was seen on 03/26/20. NOTE [facility] Triage Note S: Loulou is a 24yo at 37+1wks who presents to [facility] for labor check. She reports that over the past four nights she has had a period of irregular contractions, but today she has been fran throughout the day and now they are q5-15 minutes apart and the pain is in her abdomen and back. She reports +FM, denies LOF/VB. Pt reports that she is adequately hydrated. complicated by obesity and multiple UTIs and Vaginitis throughout . GBS unknown Chart unavailable for review. O: VSS, afebrile, normotensive FHR 150s, moderate variability, + accels, no decels noted CTX: q2-3 initially, but after pt hydrated, then began to dissipate on TOCO and pt denies feeling any on the monitor and was able to speak freely throughout her entire assessment. VE: 40/-3 A: 24yo at 37+1wks, Category I FHT, latent labor. P: Discharge home with labor and return precautions Encouraged pt to PO hydrate with 3-4 liters/day Relaxation techniques reviewed SANDOVAL YO CNM Mar 26, 2020 22:08
== END 2020-03-26 21:54 | disposition home or self-care (01) ==
LOC: M LDO 20:50
PROVIDERS: ATTEND Registered Nurse Maternal Newborn
DX: O47.1 False labor at or after 37 completed weeks of gestation (principal); Z3A.37 37 weeks gestation of pregnancy
CPT/HCPCS: 59025; G0378; G0463

== ENCOUNTER 2020-03-28 20:54 | Inpatient (IN) | payer OTHER ==
[~2020-03-28] VITALS: Ht 182.9 cm; Wt 133.2 kg
[2020-03-28] MEDS: LR 1,000 ML IV SCH (04:50)
[2020-03-28 21:03] VITALS: BP 110/71
[2020-03-28] MEDS ORDERED: LACTATED RINGER'S 1000 ML IV STA (21:33)
[2020-03-28] MEDS ORDERED: ONDANSETRON 4MG/2ML VIAL IV SCH (21:45)
[2020-03-28] MEDS ORDERED: ACETAMINOPHEN 500 MG TAB PO PRN (21:45)
[2020-03-28] MEDS ORDERED: PROMETHAZINE INJ 25 MG/ML VIAL (J2550) IV PRN (21:45)
[2020-03-28] MEDS ORDERED: diphenhydrAMINE 25MG CAP PO PRN (21:45)
[2020-03-28] MEDS ORDERED: CALCIUM CARBONATE 500 MG CHEW U/D PO PRN (21:45)
[2020-03-28] MEDS ORDERED: SIMETHICONE 80 MG CHEW TAB PO PRN (21:45)
[2020-03-28] MEDS ORDERED: BUTORPHANOL 2 MG/ML INJ (J0595) IV PRN (21:45)
[2020-03-28] MEDS ORDERED: MOM 30ML SUSPENSION UDC PO PRN (21:45)
--- NOTE | 2020-03-28 21:47 | HPEPDOC ---
Obstetrical History & Physical General Date of Admission Mar 28, 2020 at 21:18 History of Present Illness Patient is a 24yo at 37.4wks by LMP c/w 1st trimester US. C/o large gush o f clear fluid and continuous filling of pads since 1800. Then repetative ctx. No VB. Good FM. No headaches or visual changes. Chief Complaint: Contractions, term, Rupture of membranes Information Provided By: Patient Care Care: Good Care Dating Final EDC: Apr 15, 2020 Final EDC by: LMP Antepartum Course Height (inches): 72 Pre- weight (lbs.): 282 Past Medical History Past Obstetrical History : Past Obstetrical History: Multigravida Type of Delivery: Spontaneous Vaginal Del. 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 Past Medical History Medical History Obesity Surgical History: Denies/None Family History Significant Family History: No pertinent family hx Social History Marital Status: Family situation: Spouse/partner home Psychosocial History: No pertinent psych hx * Smoker: non-smoker Alcohol: rarely Drugs: denies Abuse Violence Screening Have you been hit/kicked/slapp: No Have you been sexually assault: No Allergies Coded Allergies: Penicillins (Verified Allergy, Unknown, HIVES, 03/26/20) Medications Scheduled Calcium Carbonate (Tums) 200 Mg Tab.chew, 2 TAB PO QID for cough and congestion No.137/Iron/Folic Acd ( Vitamin Tablet) 1 Tab Tab, 1 TAB PO DAILY Scheduled PRN Cyclobenzaprine HCl (Cyclobenzaprine HCl) 5 Mg Tablet, 5 MG PO TID PRN for BACK PAIN Miscellaneous Medications Acetaminophen (Mapap) 500 Mg Tablet, 1,000 MG PO Physical Examination Physical Examination GENERAL: Alert and oriented times three. BREAST: . ABDOMEN: Gravid and non-tender to touch. FETUS: Is vertex (VTX) by sterile vaginal examination (SVE), with copious clear fluid coming from vagina. Nitrazine +. HEART RATE: Regular rate and rhythm. LUNGS: Clear to auscultation (CTA). EXTREMITIES: No edema. Laboratory Data 24H LABS Laboratory Tests 2 03/28/20 21:33: Serology Scanned Report Hepatitis B Testing Urine Culture: Contaminated Pertinent Laboratoy Data Blood Type: O+ RBC Antibody Screen: Negative HIV: Negative Hepatitis B: Negative Rapid Plasma Reagin: Immune Rubella: Immune Varicella: Immune Chlamydia/Gonorrhea: Negative Group B Streptococcus: Negative Glucose Tolerance Test: 111 Steroid Therapy Steroid Therapy: No Vaginal Examination Dilation: 3 cm Effacement: 30% Station: -3 Cervical Consistency: Medium Cervical Position: Posterior Presentation: Cephalic presentation Assessment Heart Rate (FHR): 140 Variability: Moderate Accelerations: Present Decelerations: None Tocometer Contractions: Yes Frequency: regular, every 1-3 min. Multi-drug resistant Organism: No history of MDRO Assessment/Plan Assessment Patient is a 24yo at 37.4wks by LMP c/w 1st trimester US. Admission for SROM. In latent labor not requiring augmentation and does not desire at this time. Fetus is ressuring. D/w patient risks and benefits to and potential for delivery or VAVD and risks of hemorrhage or need for PRBC. Plan Admit and orient. Record Center Specialist and consent. Diet: Regular until active labor. Group B Streptococcus (GBS) negative. Labs and intravenous (IV) per unit protocol. Counseled on Pitocin and patient declines. Lactated Ringers (LR): Bolus 500 mL, then at 125 mL/hr once in active labor. Anticipate normal spontaneous delivery (). C-S or VAVD as appropriate. Pain mgt per patient preference. Makayla Maciel MD Mar 28, 2020 21:47
[2020-03-28 22:14] LABS: BASO % 0.2 % (0.0-1.0); EOS % 0.4 % (0.0-3.0); HEMATOCRIT 33.2 % (36.0-47.0); HEMOGLOBIN 11.1 g/dl (12.0-15.5); LYMPH % 18.7 % (24.0-44.0); MEAN CORPUSCULAR HEMOGLOBIN 27.5 pg (27.0-33.0); MEAN CORPUSCULAR HGB CONC 33.4 g/dl (32.0-36.5); MEAN CORPUSCULAR VOLUME 82.2 fl (80.0-96.0); MONO # 0.6 10^3/uL (0.0-0.8); MONO % 5.4 % (0.0-5.0); NEUTROPHILS # 8.1 10^3/uL (1.5-8.5); NEUTROPHILS % 74.9 % (36.0-66.0); PLATELET COUNT, AUTOMATED 281 10^3/uL (150-450); RED BLOOD COUNT 4.04 10^6/uL (4.00-5.40); WHITE BLOOD COUNT 10.8 10^3/uL (4.0-10.0)
[2020-03-28 22:40] VITALS: BP 117/68
[2020-03-28 23:27] LABS: HIV 1&2 SCREEN CENTAUR NEGATIVE (NEGATIVE)
[2020-03-29] VITALS (22 sets, daily range): BP systolic 95–138; BP diastolic 50–84
[2020-03-29] MEDS ORDERED: OXYTOCIN DRIP 30 UNITS in IV 1 EA IV SCH (08:45)
[2020-03-29] MEDS ORDERED: OXYTOCIN 30 UNITS IN 0.9% NaCl 500ML IV BAG (J2590) As Ordered ONE (08:52)
--- NOTE | 2020-03-29 10:45 | IPNPDOC ---
Obstetrical Progress Note Date of Service Mar 29, 2020 Subjective 24 yo at 37w4d with VALERIA of 04/15/2020 who is admitted for PROM since 1800 yesterday. She has supportive family at the bedside. Discussed contractions are spaced out to every 5-6 minutes and possibility of starting pitocin. She and spouse are agreeable to plan of care. Objective Vital Signs Date Time Temp Pulse Resp B/P (MAP) Pulse Ox O2 Delivery O2 Flow Rate FiO2 03/29/20 06:42 97.3 03/29/20 06:16 82 112/55 (74) 03/29/20 05:29 18 03/29/20 05:06 Room Air Cervical exam is unchanged over 4 hours Recommend to start pitocin. Assessment Heart Rate (FHR): 135 Variability: Moderate Accelerations: None Decelerations: Variable Tocometer Contractions: Yes Frequency: regular (every 5-7 minutes) Sterile Vaginal Examination Dilation: 5 cm Effacement (%): 50% Station: -3 Cervical Consistency: Medium Cervical Position: Posterior Postion/Presentation: Cephalic presentation Assessment and Plan Age: 24 : 2 Term: 1 Pre-term: 0 Abortions: 0 Livin EGA at Admission: 37 (+4) Weeks & Days 37w4d Status: Reassuring Group B Streptococcus: Negative Anticipate: Vaginal Delivery CHAVO FOURNIER CNM Mar 29, 2020 08:40
--- NOTE | 2020-03-29 11:19 | IPNPDOC ---
Obstetrical Progress Note Date of Service Mar 29, 2020 Subjective 24 yo at 37w4d with VALERIA of 04/15/2020 admitted for PROM. Reports contractions are painful. Declines for pain medication or epidural at this time. Supportive family at the bedside. Objective Vital Signs Date Time Temp Pulse Resp B/P (MAP) Pulse Ox O2 Delivery O2 Flow Rate FiO2 03/29/20 09:04 97.7 84 16 117/62 (80) 03/29/20 05:06 Room Air Assessment Heart Rate (FHR): 135 Variability: Moderate Accelerations: None Decelerations: Early Tocometer Contractions: Yes Frequency: regular (every 3-4 minutes) Sterile Vaginal Examination Dilation: 6 cm Effacement (%): 80% Station: -2 Assessment and Plan Age: 24 : 2 Term: 1 Pre-term: 0 Abortions: 0 Livin EGA at Admission: 37 (+4) Weeks & Days 37w4d Group B Streptococcus: Negative Anticipate: Vaginal Delivery CHAVO FOURNIER CNM Mar 29, 2020 11:19
[2020-03-29] MEDS: LR 1,000 ML IV SCH (11:22)
[2020-03-29] MEDS ORDERED: FENTANYL 2MCG/ML ROPIVACAINE 0.2% IN 0.9% NACL 100ML IVBAG As Ordered ONE (11:28)
[2020-03-29] MEDS ORDERED: DOCUSATE SODIUM 100 MG CAP PO PRN (12:45)
[2020-03-29] MEDS ORDERED: DIBUCAINE 1% OINTMENT 30GM TOP PRN (12:45)
[2020-03-29] MEDS ORDERED: MEASLES,MUMPS,RUBELLA VACCINE INJ (MMR-II) (90707) SC SCH (12:45)
[2020-03-29] MEDS ORDERED: ANUSOL HC CREAM 30GM TOP PRN (12:45)
[2020-03-29] MEDS ORDERED: RHOGAM 300 MCG (1500 IU) INJ (J2790) IM SCH (12:45)
[2020-03-29] MEDS ORDERED: METHYLERGONOVINE MALEATE 0.2 MG TAB PO PRN (12:45)
[2020-03-29] MEDS ORDERED: LIDOCAINE 1% MDV 20ML VIAL SC ONE (13:00)
--- NOTE | 2020-03-29 13:12 | DNPDOC ---
[facility] Delivery Note Delivery Note DATE OF DELIVERY: 03/29/2020 PREDELIVERY DIAGNOSIS: 37-4/7 weeks' gestation, Obesity, PROM, and labor. POST DELIVERY DIAGNOSIS: Delivered. PROCEDURE: Spontaneous vaginal delivery. LOADER TECHNICIAN: Chavo Gutierrez CNM, JUANCARLOS-ZACKERY, LUCILA ANESTHESIA: Stadol and phenergan. ESTIMATED BLOOD LOSS: 300 mL. FINDINGS: 7 pound 10 ounce male , Score 9/9 DELIVERY SUMMARY: Patient is a 24-year-old 2 now para 2-0-0-2 who was admitted to labor and delivery for PROM since 1800 on 03/28/2020 and was 3 cm dilated. Labor progressed with pitocin and membranes were ruptured spontaneously for clear fluid. The patient progressed to fully dilated and entered the second stage of labor at which point she began to push in hands and knees position over an intact perineum. The head was then delivered. A nuchal cord was not noted. The rest of the was delivered. The infant was handed to the patient through the legs and then the cord was doubly clamped and cut by the FOB. Cord blood was collected and a 3 vessel cord was noted. Placenta was delivered spontaneously and intact. Manual exploration of the uterus was not performed. Uterine tone was firm. Bleeding was well controlled. Perineum, vagina, and cervix was inspected and a left labial laceration was found. This was repaired with 3-0 chromic. Cervical exam was normal. Rectal exam was not indicated. Sponge, instrument, and needle counts were correct. Patient tolerated the procedure well and is stable in recovery. CHAVO GUTIERREZ CNM Mar 29, 2020 12:20
[2020-03-29] MEDS: IBUPROFEN 800 MG TAB PO PRN (14:23)
[2020-03-30] MEDS: IBUPROFEN 800 MG TAB PO PRN ×2 (02:53→15:19)
[2020-03-30 06:10] VITALS: BP 117/57
[2020-03-30] MEDS ORDERED: IBUP80TA PO (06:59)
[2020-03-30] MEDS ORDERED: DIBU10OI TOP (06:59)
[2020-03-30] MEDS ORDERED: DOCU100C16 PO (06:59)
[2020-03-30 07:26] LABS: HEMATOCRIT 29.3 % (36.0-47.0); HEMOGLOBIN 9.7 g/dl (12.0-15.5); MEAN CORPUSCULAR HEMOGLOBIN 27.8 pg (27.0-33.0); MEAN CORPUSCULAR HGB CONC 33.1 g/dl (32.0-36.5); PLATELET COUNT, AUTOMATED 233 10^3/uL (150-450); RED BLOOD COUNT 3.49 10^6/uL (4.00-5.40)
[2020-03-30] MEDS: PRENATAL VITAMINS CHEWABLE TABLET PO SCH (08:10)
[2020-03-30 17:46] VITALS: BP 108/56
[2020-03-31] MEDS: IBUPROFEN 800 MG TAB PO PRN ×2 (00:28→10:52)
--- NOTE | 2020-03-31 05:41 | IPNPDOC ---
Progress Note Date of Service: Mar 31, 2020 Day#: 2 Progress Note SUBJECT: Loulou is a 24-year-old 2 now Para 2 status post uncomplicated spontaneous vaginal delivery at 37+4/7 weeks. Patient reports doing well day #2. She has been ambulating, voiding spontaneously wi thout issue and tolerating regular diet. Breast feeding with nursing assistance. Reports lochia is decreasing. Reports pain is well-controlled. OBJECTIVE: VITAL SIGNS: Within normal limits, afebrile. Alert and oriented x3, in NAD Breasts: nipples intact, supple RESP: no exaggerated respiratory effort appreciated, no cough CARDS: well-perfused, no edema Abdomen: Fundus firm at U-1. Soft, NTTP. : No edema, scant lochia. Ext: no edema, no calf-tenderness ASSESSMENT: Loulou is a 24-year-old 2 now Para 2 status post uncomplicated spontaneous vaginal delivery at 37+4/7 weeks. Clinically doing well on day 2. Vitals within normal limits, afebrile, hemodynamically stable with no evidence of infection. PLAN: 1. Discharge planning for today - was originally discharged home yesterday but as infant was not discharged, patient had d/c order held 2. Continue current pain mgmt 3. Encourage breast feeding, support PRN 4. Encourage ambulation OOB as tolerated. 5. Encourage regular diet as tolerated VS, I&O, 24H, Fishbone Vital Signs/I&O Vital Signs Date Time Temp Pulse Resp B/P (MAP) Pulse Ox O2 Delivery O2 Flow Rate FiO2 03/30/20 17:46 97.5 68 18 108/56 (73) 98 03/29/20 05:06 Room Air Laboratory Data 24H LABS Laboratory Tests 2 03/30/20 06:42: Nucleated Red Blood Cells % (auto) 0.0 CBC/BMP Laboratory Tests 03/30/20 06:42 MARY ONTIVEROS DO Mar 31, 2020 05:40
[2020-03-31 06:00] VITALS: BP 98/55
[2020-03-31] MEDS: PRENATAL VITAMINS CHEWABLE TABLET PO SCH (08:09)
--- NOTE | 2020-04-05 11:54 | DS ---
DATE OF ADMISSION: 03/28/2020 DATE OF DISCHARGE: BRIEF HISTORY: [id number] 4 now para 2 admitted with 37 and 4 weeks of gestation with contractions and spontaneous rupture of membranes. She had a spontaneous vaginal delivery, male weighing 7 pounds 10 ounces, Apgars of 9 and 9 at one and five minutes respectively. She received IV medications for labor. She had a left labial laceration repaired in the usual fashion. On the second day, we discussed phlebitis, cystitis, mastitis, endometritis, and cellulitis, diet, exercise, pain management, perineal, breast, and wound care. She has her meds dispensed at [facility]. We will make a six-week check up at [facility]. The rest of the examination is unremarkable. Normocephalic, atraumatic. Neck: Full range of motion. Pupils equal and reactive to light. Distal pulses symmetric. No evidence of deep vein thrombosis (DVT), pulmonary embolus (PE) or superficial phlebitis. Chest is clear bilaterally to the bases; no wheezes or rhonchi. No CVA tenderness. Abdomen was soft, four-quadrant bowel sounds are noted. Uterus 2 below, perineum is healing. Admitting hemoglobin 11.1, hematocrit 33.2 and platelets were 281. Her vital signs on discharge: Her blood pressure 117/57, respirations 18, pulse 84, temperature is 96.9. Patient expressed understanding of the plan of care. She is going to be discharged pending bilirubin results of the baby, as her previous daughter had to be returned because of elevated spikes in the bilirubin. Otherwise, the patient will be made a boarder. Patient has picked up her meds at [facility]; will call for a six-week checkup at [facility]. All questions were answered in a 20-minute discussion. LUIS
--- NOTE | 2020-04-06 14:21 | IPN ---
DATE: 03/29/2020 This patient requested circumcision of her male . After discussing risks and benefits of circumcision, the medical and non-medical indications, penile block and aftercare, expressed understanding of penile block, aftercare and bleeding, signed the consent form, all questions were answered, 20 minute discussion. We await clearance by the workers compensation claims assistant. LUIS
== END 2020-03-31 14:05 | disposition home or self-care (01) | DRG 807 ==
LOC: M LDO 20:54 → M LDI 21:18 → M OBS 03-29 14:39
PROVIDERS: ADMIT Obstetrics & Gynecology; ATTEND Registered Nurse Maternal Newborn
PROC: 10E0XZZ Delivery of Products of Conception, External Approach (ICD-10-PCS; principal; 2020-03-29)
PROC: 0HQ9XZZ Repair Perineum Skin, External Approach (ICD-10-PCS; 2020-03-29)
DX: O42.02 Full-term premature rupture of membranes, onset of labor within 24 hours of rupture (principal); Z37.0 Single live birth; Z3A.37 37 weeks gestation of pregnancy; O69.81X0 Labor and delivery complicated by cord around neck, without compression, not applicable or unspecified; O70.0 First degree perineal laceration during delivery; O99.214 Obesity complicating childbirth; E66.9 Obesity, unspecified